=== PATIENT | male | born 1960 | race Two or more races ===

== ENCOUNTER 2020-12-21 15:48 | Inpatient (IN) | payer MEDICAID, OTHER ==
[~2020-12-21] VITALS: Ht 177.8 cm; Wt 72.6 kg
[~2020-12-21 15:48] MED LIST: LISI-716 PO; LORA0.5T20 GT; ZOLP5TAB PO
[2020-12-21] MEDS ORDERED: SUCCINYLCHOLINE CHLORIDE 20 MG/ML 10ML VIAL IV ONE ×2 (15:53→16:00)
[2020-12-21] MEDS ORDERED: ETOMIDATE (2MG/ML) 20ML VIAL IV ONE ×2 (15:53→16:00)
[2020-12-21] MEDS ORDERED: MIDAZOLAM DRIP 50 mg/50mL 50 ML IV ONE (15:56)
[2020-12-21] MEDS: MIDAZOLAM DRIP 50 mg/50mL 50 ML IV SCH (16:01)
[2020-12-21] MEDS ORDERED: NOREPINEPHRINE 8 MG/250ML KIT 250 ML IV ONE (16:01)
[2020-12-21] MEDS ORDERED: cefTRIAXone 1GM/50ML D5W 50 ML IV ONE (16:30)
[2020-12-21 16:45] LABS: Red Blood Cells 2.96 10^6/uL (4.5-5.90)
[2020-12-21 16:49] LABS: Basophils # (auto) 0 10 ^3/uL (0-0.2); Basophils % (auto) 0.2 % (0.0-2.0); Eosinophils # (auto) 0 10 ^3/uL (0-0.8); Eosinophils % (auto) 0.1 % (0.0-7.0); Hemoglobin 11.1 g/dL (13.5-17.5); Lymphocytes % (auto) 3.6 % (10.0-50.0); Mean Corpuscular Hemoglobin 37.6 pg (28.0-32.0); Mean Corpuscular Hgb Conc. 35.9 g/dL (32.0-36.0); Mean Corpuscular Volume 104.6 fL (80.0-100.0); Monocytes # (auto) 1.2 10 ^3/uL (0-1.3); Monocytes % (auto) 4.4 % (0.0-12.0); Neutrophils # (auto) 24.9 10 ^3/uL (1.6-8.6); Neutrophils % (auto) 91.7 % (37.0-80.0); Red Cell Distribution Width 15.6 % (11.8-14.3); White Blood Cell 27.1 10^3/uL (4.4-10.8)
[2020-12-21 16:53] LABS: Lactic Acid w/Reflex 7.3 mmol/L (0.4-2.0)
[2020-12-21 17:01] LABS: Albumin 1.4 g/dL (3.4-5.0); Anion Gap 12 (5-15); BUN/Creatinine Ratio 25.4; Blood Alcohol < 3.0 mg/dL (0-5); Blood Urea Nitrogen 62 mg/dL (7-18); Calcium 7.8 mg/dL (8.5-10.1); Carbon Dioxide 18 mmol/L (21-32); Chloride 95 mmol/L (98-107); GFR African American 35 mL/min; GFR Non-African American 29 mL/min; Glucose 82 mg/dL (74-106); Sodium 125 mmol/L (136-145)
[2020-12-21 17:07] LABS: Alanine Aminotransferase 71 U/L (16-61); Alkaline Phosphatase 171 U/L (45-117); Aspartate Aminotransferase 195 U/L (15-37); Bilirubin, Total 8.2 mg/dL (0.2-1.0); Total Protein 7.8 g/dL (6.4-8.2)
[2020-12-21 17:11] LABS: INR 2.83 (0.9-1.15); Partial Thromboplastin Time 50.4 sec (23.0-31.2)
[2020-12-21 17:18] LABS: Potassium 7.1 mmol/L (3.5-5.1)
[2020-12-21] MEDS: NOREPINEPHRINE 8 MG/250ML KIT 250 ML IV SCH (17:20)
[2020-12-21] MEDS ORDERED: SODIUM BICARBONATE 8.4% INJ 50ML SYRINGE IV ONE (17:30)
[2020-12-21] MEDS ORDERED: ALBUTEROL SULF 2.5 MG/0.5ML(0.5%) NEB SOLN NEB ONE (17:30)
[2020-12-21] MEDS ORDERED: InsuLIN REG 1unit/0.01ml Soln (100units/ml) IV ONE (17:30)
[2020-12-21] MEDS ORDERED: FUROSEMIDE 20 MG/2 ML VIAL IV ONE (17:30)
[2020-12-21] MEDS ORDERED: DEXTROSE (50%) 50ML SYRG IV ONE (17:30)
[2020-12-21] MEDS ORDERED: SODIUM ZIRCONIUM CYCL 10 GM PAK PO ONE (17:30)
[2020-12-21] MEDS ORDERED: CALCIUM GLUC 1,000mg/50ml-NS 50 ML IV ONE (17:30)
[2020-12-21] MEDS ORDERED: SODIUM CHLORIDE 0.9% 1,000 ML IV ONE ×2 (17:45)
[2020-12-21 18:30] LABS: Alcohol, Urine < 3.0 mg/dL (0-10); Amphetamine Screen, Urine NEGATIVE (NEGATIVE); Barbiturate Scree,Urine NEGATIVE (NEGATIVE); Benzodiazephine Screen, Urine NEGATIVE (NEGATIVE); Cannabinoid Screen, Urine POSITIVE (NEGATIVE); Cocaine Screen, Urine NEGATIVE (NEGATIVE); Opiate Scree,Urine POSITIVE (NEGATIVE); Phencyclidine Screen, Urine NEGATIVE (NEGATIVE)
[2020-12-21 18:40] VITALS: BP 104/55
[2020-12-21] MEDS ORDERED: NITROGLYCERIN 0.4 MG SL TAB SL PRN (18:45)
[2020-12-21] MEDS ORDERED: MORPHINE SULFATE INJECTION 2 MG/ML SYRG IV PRN (18:45)
[2020-12-21] MEDS ORDERED: SODIUM BICARBONATE 8.4 % INJ 50ML VIAL IV ONE (18:45)
[2020-12-21 18:59] LABS: Urine Bacteria NONE SEEN /hpf (None Seen); Urine Blood 1+ /uL (Negative); Urine Hyaline Cast FEW /lpf (0 - 2); Urine Mucus FEW (None Seen); Urine Specific Gravity 1.016 (1.001-1.035); Urine WBC 4 /hpf (0 - 3)
[2020-12-21 19:46] VITALS: BP 104/55
[2020-12-21 19:49] LABS: Lactic Acid w/Reflex 6.7 mmol/L (0.4-2.0)
[2020-12-21 19:57] LABS: BUN/Creatinine Ratio 24.8; Calcium 6.8 mg/dL (8.5-10.1)
[2020-12-21 20:09] LABS: Potassium 5.9 mmol/L (3.5-5.1)
[2020-12-21 20:10] LABS: Potassium 5.9 mmol/L (3.5-5.1)
[2020-12-21 20:15] VITALS: BP 99/53
[2020-12-21] MEDS: SODIUM BICARBONATE 50ML VIAL 150 ML in D5W 5% 1,000 ML IV SCH (20:28)
[2020-12-21] MEDS ORDERED: phytonadione 5 MG in SODIUM CHL 0.9% 50 ML IV ONE (20:30)
[2020-12-21] MEDS: DOXYCYCLINE 100MG/250ML 250 ML IV SCH (20:30)
[2020-12-21] MEDS: metroNIDAZOLE 500MG/100ML 100 ML IV SCH (22:13)
[2020-12-21 22:25] VITALS: BP 97/55
[2020-12-22] VITALS (10 sets, daily range): BP systolic 83–116; BP diastolic 51–71
[2020-12-22] MEDS: LACTULOSE 10g/15ml SOLN PR SCH ×4 (00:21→20:51)
[2020-12-22] MEDS: metroNIDAZOLE 500MG/100ML 100 ML IV SCH ×2 (06:23→10:33)
[2020-12-22 07:25] LABS: Mean Corpuscular Hemoglobin 37.4 pg (28.0-32.0)
[2020-12-22 07:27] LABS: Hematocrit 28.7 % (41.0-53.0); Hemoglobin 10.1 g/dL (13.5-17.5); Mean Corpuscular Hgb Conc. 35.3 g/dL (32.0-36.0); Mean Corpuscular Volume 106.1 fL (80.0-100.0); Red Cell Distribution Width 15.6 % (11.8-14.3); White Blood Cell 22.5 10^3/uL (4.4-10.8)
[2020-12-22 07:37] LABS: Basophils % (manual) 0 (0.0-2.0); Blast Cells 0; Eosinophils % (manual) 0 (0-7); Lymphocytes % (manual) 0 (10.0-50.0); Promyelocytes % 0; Reactive Lymphocytes 0
[2020-12-22 07:52] LABS: BUN/Creatinine Ratio 27.3; Calcium 7.2 mg/dL (8.5-10.1)
[2020-12-22 07:56] LABS: Bilirubin, Total 7.7 mg/dL (0.2-1.0); Total Protein 6.5 g/dL (6.4-8.2)
[2020-12-22 08:00] LABS: Potassium 5.7 mmol/L (3.5-5.1)
[2020-12-22 08:31] LABS: Band Neutrophils % (manual) 4; Metamyelocytes % 2; Monocytes % (manual) 3 (0-12); Myelocytes % 1
[2020-12-22 09:30] LABS: Hemoglobin 9.9 g/dL (13.5-17.5); Lymphocytes % (auto) 8.3 % (10.0-50.0)
[2020-12-22 09:32] LABS: Basophils # (auto) 0.1 10 ^3/uL (0-0.2); Basophils % (auto) 0.4 % (0.0-2.0); Eosinophils # (auto) 0.1 10 ^3/uL (0-0.8); Eosinophils % (auto) 0.5 % (0.0-7.0); Hematocrit 28.4 % (41.0-53.0); Lymphocytes # (auto) 1.8 10 ^3/uL (0.4-5.4); Mean Corpuscular Hemoglobin 36.5 pg (28.0-32.0); Mean Corpuscular Hgb Conc. 34.7 g/dL (32.0-36.0); Monocytes # (auto) 0.5 10 ^3/uL (0-1.3); Monocytes % (auto) 2.5 % (0.0-12.0); Neutrophils # (auto) 19.6 10 ^3/uL (1.6-8.6); Neutrophils % (auto) 88.3 % (37.0-80.0); Nucleated Red Blood Cells % 0.1 %; Red Blood Cells 2.71 10^6/uL (4.5-5.90); Red Cell Distribution Width 15.9 % (11.8-14.3); White Blood Cell 22.2 10^3/uL (4.4-10.8)
[2020-12-22] MEDS ORDERED: MELA5TAB8 PO (10:17)
[2020-12-22] MEDS ORDERED: ZOLP10TA6 PO (10:17)
[2020-12-22] MEDS ORDERED: DIPH25CA29 PO (10:17)
[2020-12-22] MEDS ORDERED: MORP15TA PO (10:17)
[2020-12-22] MEDS ORDERED: HYDR-3682 PO (10:17)
[2020-12-22] MEDS ORDERED: [UNRECOGNIZED DRUG - CODE] (10:17)
[2020-12-22] MEDS ORDERED: CHOL1TAB42 PO (10:17)
[2020-12-22] MEDS ORDERED: IBUP600T28 PO (10:17)
[2020-12-22] MEDS ORDERED: METF-372 PO (10:17)
[2020-12-22] MEDS: DOXYCYCLINE 100MG/250ML 250 ML IV SCH (10:32)
[2020-12-22] MEDS: SODIUM BICARBONATE 50ML VIAL 150 ML in D5W 5% 1,000 ML IV SCH ×2 (11:50→17:04)
[2020-12-22] MEDS: MIDAZOLAM DRIP 50 mg/50mL 50 ML IV SCH (12:16)
[2020-12-22] MEDS ORDERED: ACETAMINOPHEN 650 mg PER 20.3 mL UD GT PRN (14:15)
[2020-12-22] MEDS ORDERED: fentaNYL Drip 2500mCg/250mlNS 250 ML IV SCH (15:45)
[2020-12-22] MEDS ORDERED: VANCOMYCIN PER PHARMACY 0 MG IV SCH (16:15)
[2020-12-22] MEDS ORDERED: VANCOMYCIN 1GM/250ML 250 ML IV ONE (17:00)
[2020-12-22] MEDS ORDERED: LACTULOSE 10g/15ml SOLN PR SCH (18:00)
[2020-12-22] MEDS: NOREPINEPHRINE 8 MG/250ML KIT 250 ML IV SCH (18:34)
[2020-12-22] MEDS: MEROPENEM 1GM IVPB 100 ML IV SCH (20:52)
[2020-12-22] MEDS ORDERED: cefTRIAXone 1GM/50ML D5W 50 ML IV SCH (21:00)
[2020-12-23] VITALS (8 sets, daily range): BP systolic 86–115; BP diastolic 46–86
[2020-12-23] MEDS: LACTULOSE 10g/15ml SOLN PR SCH ×3 (02:10→13:29)
[2020-12-23] MEDS ORDERED: SODIUM ZIRCONIUM CYCL 10 GM PAK PO ONE (03:15)
[2020-12-23] MEDS: SODIUM BICARBONATE 50ML VIAL 150 ML in D5W 5% 1,000 ML IV SCH (05:28)
[2020-12-23 06:49] LABS: Basophils # (auto) 0 10 ^3/uL (0-0.2); Lymphocytes # (auto) 2.1 10 ^3/uL (0.4-5.4); Nucleated Red Blood Cells % 0.2 %; Red Blood Cells 2.98 10^6/uL (4.5-5.90); Red Cell Distribution Width 15.9 % (11.8-14.3)
[2020-12-23 06:52] LABS: Basophils % (auto) 0.2 % (0.0-2.0); Eosinophils # (auto) 0.3 10 ^3/uL (0-0.8); Hematocrit 31.7 % (41.0-53.0); Hemoglobin 10.9 g/dL (13.5-17.5); Mean Corpuscular Hemoglobin 36.6 pg (28.0-32.0); Mean Corpuscular Hgb Conc. 34.5 g/dL (32.0-36.0); Mean Corpuscular Volume 106.1 fL (80.0-100.0); Monocytes # (auto) 0.7 10 ^3/uL (0-1.3); Monocytes % (auto) 2.8 % (0.0-12.0); Neutrophils # (auto) 22.8 10 ^3/uL (1.6-8.6); White Blood Cell 25.9 10^3/uL (4.4-10.8)
[2020-12-23 07:09] LABS: Calcium 7.6 mg/dL (8.5-10.1)
[2020-12-23 07:12] LABS: BUN/Creatinine Ratio 21.6
[2020-12-23 07:15] LABS: Bilirubin, Total 8.6 mg/dL (0.2-1.0); Total Protein 6.3 g/dL (6.4-8.2)
[2020-12-23] MEDS ORDERED: ALBUMIN 5% 250 ML IV ONE (07:15)
[2020-12-23 07:43] LABS: Potassium 6.4 mmol/L (3.5-5.1)
[2020-12-23] MEDS: MEROPENEM 1GM IVPB 100 ML IV SCH (08:37)
[2020-12-23] MEDS ORDERED: SODIUM BICARBONATE 50ML VIAL 150 ML in D5W 5% 1,000 ML IV SCH (08:45)
[2020-12-23] MEDS ORDERED: PHENYLEPHRINE IV 250 ML IV SCH (08:45)
[2020-12-23] MEDS: MIDAZOLAM DRIP 50 mg/50mL 50 ML IV SCH (10:18)
[2020-12-23] MEDS ORDERED: CALCIUM GLUC 1,000mg/50ml-NS 50 ML IV ONE (10:45)
[2020-12-23] MEDS ORDERED: DEXTROSE (50%) 50ML SYRG IV ONE (10:45)
[2020-12-23] MEDS ORDERED: SODIUM BICARBONATE 8.4 % INJ 50ML VIAL IV ONE (10:45)
[2020-12-23] MEDS ORDERED: InsuLIN REG 1unit/0.01ml Soln (100units/ml) IV ONE (10:45)
[2020-12-23] MEDS ORDERED: ALBUMIN 25% 50 ML IV SCH (12:00)
[2020-12-23] MEDS ORDERED: FUROSEMIDE 100 MG/10ML VIAL IV ONE (12:00)
[2020-12-23] MEDS ORDERED: VASOPRESSIN 50 UNITS in D5W 5% 247.5 ML IV SCH (12:15)
[2020-12-23] MEDS: NOREPINEPHRINE 8 MG/250ML KIT 250 ML IV SCH (12:21)
[2020-12-23] MEDS ORDERED: SODIUM BICARBONATE 8.4% INJ 50ML SYRINGE ONE (12:30)
[2020-12-23] MEDS ORDERED: EPINEPHrine HCL 1 MG/10 ML SYRG IV ONE (14:04)
[2020-12-23] MEDS ORDERED: AMIODARONE HCL (50 MG/ ML) 3 ML VIAL IV ONE (14:04)
[2020-12-23] MEDS ORDERED: VANCOMYCIN 500 MG in D5W 5% 100 ML IV ONE (17:00)
[2020-12-23] MEDS ORDERED: VANCOMYCIN 1GM/250ML 250 ML IV ONE (17:00)
[2020-12-24] MEDS ORDERED: MEROPENEM 500MG IVPB 50 ML IV SCH (08:00)
== END 2020-12-23 14:05 | DRG 720 ==
LOC: ER 15:48 → EDBD 15:48 → TELE 18:39
PROVIDERS: ADMIT Nurse Practitioner Acute Care; ATTEND Internal Medicine
PROC: 5A1945Z Respiratory Ventilation, 24-96 Consecutive Hours (ICD-10-PCS; principal; 2020-12-21)
PROC: 0BH17EZ Insertion of Endotracheal Airway into Trachea, Via Natural or Artificial Opening (ICD-10-PCS; 2020-12-21)
PROC: 30233K1 Transfusion of Nonautologous Frozen Plasma into Peripheral Vein, Percutaneous Approach (ICD-10-PCS; 2020-12-23)
DX: A41.01 Sepsis due to Methicillin susceptible Staphylococcus aureus (principal); J96.01 Acute respiratory failure with hypoxia; K76.7 Hepatorenal syndrome; J69.0 Pneumonitis due to inhalation of food and vomit; N17.0 Acute kidney failure with tubular necrosis; E43 Unspecified severe protein-calorie malnutrition; R65.21 Severe sepsis with septic shock; G92 Toxic encephalopathy; E87.1 Hypo-osmolality and hyponatremia; D68.9 Coagulation defect, unspecified; D69.6 Thrombocytopenia, unspecified; E87.6 Hypokalemia; Z20.822 Contact with and (suspected) exposure to COVID-19; E87.5 Hyperkalemia; L03.116 Cellulitis of left lower limb; N18.9 Chronic kidney disease, unspecified; D63.1 Anemia in chronic kidney disease; F11.10 Opioid abuse, uncomplicated; G89.29 Other chronic pain; I12.9 Hypertensive chronic kidney disease with stage 1 through stage 4 chronic kidney disease, or unspecified chronic kidney disease; I47.2 Ventricular tachycardia; I49.3 Ventricular premature depolarization; K42.9 Umbilical hernia without obstruction or gangrene; K70.31 Alcoholic cirrhosis of liver with ascites; K70.40 Alcoholic hepatic failure without coma; F12.90 Cannabis use, unspecified, uncomplicated; M54.5 Low back pain; F10.20 Alcohol dependence, uncomplicated; Z79.891 Long term (current) use of opiate analgesic; Z79.899 Other long term (current) drug therapy
CPT/HCPCS: 31500; 36415; 36556; 36600; 70450; 71045; 74176; 76705; 80048; 80053; 80202; 80307; 80320; 81001; 82140; 82805; 82962; 83605; 84132; 84443; 84484; 85007; 85025; 85027; 85610; 85730; 86850; 86900; 86901; 87040; 87070; 87077; 87086; 87088; 87186; 87205; 87426; 93005; 94002; 94003; 96365; 96367; 99291; G0378; J0330; J0696; J1815; J2185; J2250; J3430; J3490; J7060